=== PATIENT | female | born 1930 | race Caucasian/White ===

== ENCOUNTER → 2017-01-12 | Outpatient (CLI) | payer MEDICARE, OTHER, MEDICAID ==
[~2017-01-12] MED LIST: ACET650T59 PO; ASPI81TA2 PO; DONE10TA15 PO; DUONEB IH; GUAI5SYR PO; WARF1TAB47 PO; WARF2TAB58 PO
[2017-01-12 06:41] LABS: INR 2.62 (0.76-1.04); PROTHROMBIN TIME 28.6 SEC (9.31-12.49)
== END ==
LOC: LABN.SV 06:11
PROVIDERS: ATTEND Family Medicine
DX: Z86.718 Personal history of other venous thrombosis and embolism (principal)
CPT/HCPCS: 85610

== ENCOUNTER → 2017-02-09 | Outpatient (CLI) | payer MEDICARE, OTHER, MEDICAID ==
[2017-02-09 08:24] LABS: INR 2.5 (0.76-1.04); PROTHROMBIN TIME 27.3 SEC (9.31-12.49)
== END ==
LOC: LABN.SV 08:08
PROVIDERS: ATTEND Family Medicine
DX: Z86.718 Personal history of other venous thrombosis and embolism (principal)
CPT/HCPCS: 85610

== ENCOUNTER → 2017-03-09 | Outpatient (CLI) | payer MEDICARE, OTHER, MEDICAID ==
[2017-03-09 08:19] LABS: INR 2.69 (0.77-1.03); PROTHROMBIN TIME 29.3 SEC (9.48-12.52)
== END ==
LOC: LABN.SV 08:07
PROVIDERS: ATTEND Family Medicine
DX: Z86.718 Personal history of other venous thrombosis and embolism (principal)
CPT/HCPCS: 85610